=== PATIENT | male | born 1955 | race Caucasian/White ===

== ENCOUNTER 2016-09-22 02:09 | Emergency (ER) | payer OTHER ==
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
--- NOTE | ~2016-09-22 | CR150 ---
[facility] A Service of [facility] RADIOLOGY TEXT RESULTS PATIENT: BOYD PEOPLES LOCATION: [facility] : 53 UNIT #: [id number] AGE: [address]: Ehsan Roche MD SEX: M ORDER DR: [id number] [place] [id number] [facility] [place], [place] [address] [id number] E MR#: [id number] Acc #: [id number] NAME: BOYD PEOPLES : 1955 SEX: M STUDY DATE/TIME: 09/22/2016 2:23 UNIT: [facility] ROOM: STUDY DESCRIPTION: CR Hip Min 2 Views Lt Attending Physician: Ehsan Roche Ordering Physician: Ehsan Roche, [id number] Primary Care Physician: Primary Care Physician No MEDICAL IMAGING REPORT This report is preliminary unless electronic signature is present EXAM AP pelvis frog view left hip. DATE: 09/22/2016 HISTORY Left hip pain after falling tonight. Intoxicated. COMPARISON AP pelvis and right hip radiograph 04/30/2015 FINDINGS No acute pelvic fracture, no hip fracture or dislocation is seen. The joint spaces appear preserved. Degenerative loss of disc height is present on the right at L4-5 with osteophyte formation. IMPRESSION Normal pelvis and left hip. Degenerative changes of the lower lumbar spine. Dictated by... Mamta Cormier M.D. THIS IS AN ELECTRONICALLY VERIFIED REPORT Mamta Cormier M.D. at 09/22/2016 10:01 PM [facility]/sonia TD: 09/22/2016 07:59 JOB #: [id number] MEDICAL IMAGING REPORT [facility] A Service [facility] RADIOLOGY TEXT RESULTS PATIENT: BOYD PEOPLES LOCATION: [facility] : 53 UNIT #: [id number] AGE: [address]: Ehsan Roche MD SEX: M ORDER DR: COPY
[~2016-09-22 02:09] MED LIST: ALBUTEROL17 GM INH; ASPIRIN PO; ASPIRIN325 M1 PO; ASPIRIN81 M2 PO; ASPIRIN81 MG PO; AZITHROMYCIN250 MG PO; BACTRIM DS TABL1 TA2 PO; BACTROBAN15 GM TOP; BENZONATATE PO; BP MED; COREG3.125 MG PO; DICLOFENAC PO; DOXYCYCLINE HY100 M3 PO; FOLIC ACID1 MG PO; HEART MEDICINE; HYDROCODON-ACE1 EAC5 PO; HYDROCORTISONE15 G3 TP; HYDROCORTISONE30 G1 EXT; KCL 10MEQ/10 MEQ/100 PO; KEFLEX500 MG PO; KETOPROFEN PO; LOPRESSOR PO; MAG-OX 400400 M1 PO; MEDROL PO; MEDROL4 MG/DOSE- PO; MEGA MULTIVITA1 EACH PO; MOTRIN600 MG PO; MULTI VITAMIN1 EACH PO; NAPROSYN500 MG PO; NO MEDICATIONS; OMEPRAZOLE20 M1 PO; PEPCID AC20 M2 PO; PREDNISONE PO; PRESERVISION A1 EAC1 PO; PROTONIX PO; THIAMINE HCL100 M1 PO; TRAMADOL HCL50 M1 PO; VICODIN 5/1 TAB 5/50 PO; VOLTAREN50 MG PO; VOLTAREN75 MG PO; ZESTRIL10 MG PO; ZESTRIL5 MG PO; ZITHROMAX PO; ZYRTEC10 M2 PO; [UNRECOGNIZED DRUG - REMARK]
== END 2016-09-22 06:52 | disposition home or self-care (01) ==
LOC: CED 02:09
DX: S70.02XA Contusion of left hip, initial encounter (principal); I25.2 Old myocardial infarction; J45.909 Unspecified asthma, uncomplicated; F17.210 Nicotine dependence, cigarettes, uncomplicated; W01.0XXA Fall on same level from slipping, tripping and stumbling without subsequent striking against object, initial encounter; Y92.009 Unspecified place in unspecified non-institutional (private) residence as the place of occurrence of the external cause
CPT/HCPCS: 70450; 73502; 99284

== ENCOUNTER 2016-09-23 21:12 | Emergency (ER) | payer OTHER ==
--- NOTE | ~2016-09-23 | CR141 ---
[facility] A Service of [facility] RADIOLOGY TEXT RESULTS PATIENT: BOYD PEOPLES LOCATION: [facility] : 53 UNIT #: [id number] AGE: [address]: Ehsan Willard MD SEX: M ORDER DR: [id number] [facility] [address] [place], [place] [address] [id number] E MR#: [id number] Acc #: [id number] NAME: BOYD PEOPLES : 1955 SEX: M STUDY DATE/TIME: 09/23/2016 21:41 UNIT: [facility] ROOM: STUDY DESCRIPTION: CR Hand Min 3 Views Lt Attending Physician: Ehsan Willard M.D. Ordering Physician: Marcelo Vasquez D.O. Primary Care Physician: Primary Care Physician No MEDICAL IMAGING REPORT This report is preliminary unless electronic signature is present EXAM Left hand 3 views HISTORY Fell, intoxicated left hand and forearm pain, injury today. FINDINGS 3 views of the left hand demonstrates no acute fracture or dislocation. Joint space is maintained. Soft tissues unremarkable. IMPRESSION Negative left hand Dictated by... Jus Lopez M.D. THIS IS AN ELECTRONICALLY VERIFIED REPORT Jus Lopez M.D. at 09/24/2016 2:09 PM Bhargav TD: 09/24/2016 11:16 JOB #: [id number] MEDICAL IMAGING REPORT COPY
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
--- NOTE | ~2016-09-23 | CR132 ---
[facility] A Service of [facility] RADIOLOGY TEXT RESULTS PATIENT: BOYD PEOPLES LOCATION: [facility] : 53 UNIT #: [id number] AGE: [address]: Ehsan Willard MD SEX: M ORDER DR: [id number] [facility] [address] [place], [place] [address] [id number] E MR#: [id number] Acc #: [id number] NAME: BOYD PEOPLES : 1955 SEX: M STUDY DATE/TIME: 09/23/2016 21:43 UNIT: [facility] ROOM: STUDY DESCRIPTION: CR Forearm 2 View Lt Attending Physician: Ehsan Willard M.D. Ordering Physician: Marcelo Vasquez D.O. Primary Care Physician: Primary Care Physician No MEDICAL IMAGING REPORT This report is preliminary unless electronic signature is present EXAM Left forearm HISTORY Fell, intoxicated. Hand and forearm pain. FINDINGS 2 views of the left forearm demonstrates no acute fracture or dislocation. Arthritic changes noted about the left elbow with several ossific fragments both medial and lateral aspect of the elbow may be related to prior trauma or represent potential loose bodies. Distal radius and wrist joint unremarkable. Soft tissues unremarkable. IMPRESSION 1. No acute fracture or deformity of the forearm. 2. Arthritic changes of the elbow joint with multiple ossific fragments noted about the elbow joint most likely represents the sequelae of old trauma and several of these potentially could represent loose bodies, intraarticular. Dictated by... Jus Lopez M.D. THIS IS AN ELECTRONICALLY VERIFIED REPORT Jus Lopez M.D. at 09/24/2016 2:09 PM Deangelo TD: 09/24/2016 11:07 JOB #: [id number] MEDICAL IMAGING REPORT COPY
--- NOTE | ~2016-09-23 | CR72 ---
[facility] A Service of [facility] RADIOLOGY TEXT RESULTS PATIENT: BOYD PEOPLES LOCATION: [facility] : 53 UNIT #: [id number] AGE: [address]: Ehsan Willard MD SEX: M ORDER DR: [id number] [facility] [address] [facility] [place], [place] [address] [id number] E MR#: [id number] Acc #: [id number] NAME: BOYD PEOPLES : 1955 SEX: M STUDY DATE/TIME: 09/24/2016 5:35 UNIT: [facility] ROOM: STUDY DESCRIPTION: CR Chest Single View Portable Attending Physician: Ehsan Willard M.D. Ordering Physician: Marcelo Vasquez D.O. Primary Care Physician: No Primary Care Physician MEDICAL IMAGING REPORT This report is preliminary unless electronic signature is present EXAM AP portable chest DATE 09/24/2016 at 0535 HISTORY Hypoxia, shortness breath, intoxicated today. Hypertension. COMPARISON AP portable chest 08/30/2016. FINDINGS Stable mild cardiac enlargement. Clear lungs. No pleural effusion or pneumothorax or acute osseous abnormalities. IMPRESSION Stable mild cardiomegaly. No acute chest findings. Dictated by... Mamta Cormier M.D. THIS IS AN ELECTRONICALLY VERIFIED REPORT Mamta Cormier M.D. at 09/24/2016 10:26 PM [facility]/sushma TD: 09/24/2016 13:01 JOB #: [id number] MEDICAL IMAGING REPORT COPY
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
== END 2016-09-24 09:50 | disposition home or self-care (01) ==
LOC: CED 21:12
DX: S50.12XA Contusion of left forearm, initial encounter (principal); S60.222A Contusion of left hand, initial encounter; Z88.0 Allergy status to penicillin; Z88.8 Allergy status to other drugs, medicaments and biological substances; Z79.82 Long term (current) use of aspirin; X58.XXXA Exposure to other specified factors, initial encounter; Y92.89 Other specified places as the place of occurrence of the external cause
CPT/HCPCS: 36415; 70450; 71010; 72125; 73090; 73130; 84484; 94640; 96361; 96374; 96375; 96376; 99284; G0480; J2405; J2930

== ENCOUNTER 2016-09-30 02:55 | Emergency (ER) | payer OTHER ==
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
[2016-09-30 03:29] LABS: BASOPHIL% 0.5 % (0-2.5); DIFF IND NO; EOSINOPHIL% 0.6 % (0.0-7.0); HEMATOCRIT 36.3 % (38.0-50.0); HEMOGLOBIN 11.8 gm/dL (13.0-16.0); LYMPHOCYTE# 0.6 X10e3 (1.0-3.5); LYMPHOCYTE% 15.1 % (17.0-45.0); MEAN CELL VOLUME 89.1 FL (83-96); MEAN CORPUSCULAR HEMOGLOBIN 28.8 PG (28-34); MEAN CORPUSCULAR HGB CONC 32.3 g/dL (30-36); MEAN PLATELET VOLUME 7.7 FL (6.5-11.5); MONOCYTE# 0.4 X10e3 (0-1.0); MONOCYTE% 9.4 % (3.0-12.0); NEUTROPHIL# 3.1 X10e3 (1.5-7.1); NEUTROPHIL% 74.4 % (40-75); PLATELET COUNT 150 X10e3 (140-420); RED BLOOD COUNT 4.08 X10e (3.90-5.60); RED CELL DISTRIBUTION WIDTH 20.7 % (11.0-15.5); WHITE BLOOD COUNT 4.2 X10e3 (4.0-10.5)
[2016-09-30 03:55] LABS: ALBUMIN SERUM 3.9 g/dL (3.5-5.0); ALKALINE PHOSPHATASE 86 U/L (32-92); ALT (SGPT) 87 U/L (10-40); AST (SGOT) 102 U/L (10-42); BILIRUBIN, DIRECT 0.3 mg/dL (0.0-0.2); BILIRUBIN,INDIRECT 0.8 mg/dL (0.0-0.9); BILIRUBIN,TOTAL 1.1 mg/dL (0.2-2.0); BLOOD UREA NITROGEN 12 mg/dL (9-23); BUN/CREATININE RATIO 13.33; CALCIUM SERUM 8.1 mg/dL (8.4-10.2); CARBON DIOXIDE 21 mmol/L (22-31); CHLORIDE 107 mmol/L (100-111); CREATININE SERUM 0.9 mg/dL (0.6-1.4); GLOM FILT RATE Estimated ABOVE60 mL/min (>60); GLUCOSE FASTING 99 mg/dL (70-110); POTASSIUM 3.5 mmol/L (3.5-5.1); PROTEIN TOTAL SERUM 7.6 g/dL (6.0-8.3); SODIUM 144 mmol/L (135-145)
== END 2016-09-30 11:39 | disposition home or self-care (01) ==
LOC: CED 02:55
PROVIDERS: Emergency Medicine
DX: S00.03XA Contusion of scalp, initial encounter (principal); S00.83XA Contusion of other part of head, initial encounter; F10.129 Alcohol abuse with intoxication, unspecified; J45.909 Unspecified asthma, uncomplicated; F17.200 Nicotine dependence, unspecified, uncomplicated; Z88.0 Allergy status to penicillin; Z79.82 Long term (current) use of aspirin; Y04.8XXA Assault by other bodily force, initial encounter; Y92.481 Parking lot as the place of occurrence of the external cause
CPT/HCPCS: 36415; 70450; 70486; 72125; 80048; 80076; 85025; 99284; G0480

== ENCOUNTER 2016-10-01 07:30 | Emergency (ER) | payer OTHER | END 2016-10-01 09:10 | disposition home or self-care (01) | LOC: CED 07:30 | DX: S16.1XXA Strain of muscle, fascia and tendon at neck level, initial encounter (principal); S13.4XXA Sprain of ligaments of cervical spine, initial encounter; I10 Essential (primary) hypertension; J45.909 Unspecified asthma, uncomplicated; I21.3 ST elevation (STEMI) myocardial infarction of unspecified site; Z88.0 Allergy status to penicillin; Y09 Assault by unspecified means | CPT/HCPCS: 99283 ==

== ENCOUNTER 2016-10-04 07:20 | Emergency (ER) | payer OTHER ==
--- NOTE | ~2016-10-04 | EKG ---
PATIENT: BOYD PEOPLES UNIT #: [id number] Ventricular Rate: 65 BPM Atrial Rate: 65 BPM P-R Interval: 158 ms QRS Duration: 146 ms Q-T Interval: 422 ms QTC Calculation(Bezet): 438 ms P [place]: 53 degrees Calculated R [place]: 71 degrees Calculated T [place]: 35 degrees Diagnosis Line: Normal sinus rhythm Diagnosis Line: Right bundle branch block with repolarization Diagnosis Line: abnormality Diagnosis Line: Abnormal ECG Diagnosis Line: When compared with ECG of 30-AUG-2016 16:11, Diagnosis Line: No significant change was found Diagnosis Line: Confirmed by KAY OQUENDO MD ([id number]) on 10/06/2016 Diagnosis Line: 10:52:19 PM INTERPRETING MD: JERE GARCIA
--- NOTE | ~2016-10-04 | CR72 ---
[facility] A Service of [facility] RADIOLOGY TEXT RESULTS PATIENT: BOYD PEOPLES LOCATION: [place] : 53 UNIT #: [id number] AGE: [address]: Ehsan Roche MD SEX: M ORDER DR: [id number] [facility] [address] [place], [place] [address] [id number] E MR#: [id number] Acc #: [id number] NAME: BOYD PEOPLES : 1955 SEX: M STUDY DATE/TIME: 10/04/2016 6:40 UNIT: [facility] ROOM: STUDY DESCRIPTION: CR Chest Single View Portable Attending Physician: Akil Roche M.D. Ordering Physician: Stefany Espinal M.D. Primary Care Physician: No Primary Care Physician MEDICAL IMAGING REPORT This report is preliminary unless electronic signature is present EXAM Portable AP view of the chest. DATE OF EXAM 10/04/2016 COMPARISON September 24, 2016, August 30, 2016, and January 09, 2016. INDICATIONS 61-year-old male with dyspnea and chest pain since last night. Alcohol abuse. FINDINGS Lung volumes are diminished from comparison study. Mediastinal width and heart size are likely within normal limits for portable technique and low lung volumes but mild cardiomegaly and vascular congestion cannot be excluded. No evidence of pneumothorax, pleural effusion or acute airspace disease. IMPRESSION Allowing for low lung volumes and portable technique, the heart size is likely within normal limits, but there may be mild cardiomegaly. Findings in the lungs could reflect bronchovascular crowding and/or mild pulmonary vascular congestion. No pleural effusion or acute airspace disease. Dictated by... Umair Hong M.D. THIS IS AN ELECTRONICALLY VERIFIED REPORT Umair Hong M.D. at 10/07/2016 12:37 AM [facility] A Service of [facility] RADIOLOGY TEXT RESULTS PATIENT: BOYD PEOPLES LOCATION: [facility] : 53 UNIT #: [id number] AGE: [address]: Ehsan Roche MD SEX: M ORDER DR: IZABELLA/tika TD: 10/04/2016 16:55 JOB #: [id number] MEDICAL IMAGING REPORT Page 1 of 1 COPY
[2016-10-04 06:27] LABS: POC - CKMB 11.1 ng/mL (0.0-7.9); POC - TROPONIN <0.05 ng/mL (<=0.05)
[2016-10-04 06:30] LABS: BASOPHIL% 0.6 % (0-2.5); EOSINOPHIL# 0.1 X10e3 (0-0.7); EOSINOPHIL% 1.3 % (0.0-7.0); HEMATOCRIT 35.5 % (38.0-50.0); HEMOGLOBIN 11.4 gm/dL (13.0-16.0); LYMPHOCYTE# 1.8 X10e3 (1.0-3.5); LYMPHOCYTE% 36.6 % (17.0-45.0); MEAN CELL VOLUME 90.7 FL (83-96); MEAN CORPUSCULAR HEMOGLOBIN 29.1 PG (28-34); MEAN CORPUSCULAR HGB CONC 32.1 g/dL (30-36); MONOCYTE# 0.5 X10e3 (0-1.0); MONOCYTE% 10.6 % (3.0-12.0); NEUTROPHIL# 2.4 X10e3 (1.5-7.1); NEUTROPHIL% 50.9 % (40-75); PLATELET COUNT 132 X10e3 (140-420); RED BLOOD COUNT 3.92 X10e (3.90-5.60); RED CELL DISTRIBUTION WIDTH 20.5 % (11.0-15.5); WHITE BLOOD COUNT 4.8 X10e3 (4.0-10.5)
[2016-10-04 06:31] LABS: DIFF IND NO
[2016-10-04 06:44] LABS: INR 1.1; PARTIAL THROMBOPLASTIN TIME 25.2 SECONDS (23.5-31.3); PROTHROMBIN TIME (PATIENT) 11.2 SECONDS (9.6-11.5)
[2016-10-04 07:02] LABS: BILIRUBIN, DIRECT 0.3 mg/dL (0.0-0.2); BILIRUBIN,INDIRECT 0.7 mg/dL (0.0-0.9); BUN/CREATININE RATIO 11.42; CALCIUM SERUM 8.6 mg/dL (8.4-10.2); CREATININE SERUM 0.7 mg/dL (0.6-1.4); GLOM FILT RATE Estimated 100.5 mL/min (>60); POTASSIUM 3.1 mmol/L (3.5-5.1); PROTEIN TOTAL SERUM 7.7 g/dL (6.0-8.3)
[2016-10-04 08:10] LABS: POC - CKMB 10.1 ng/mL (0.0-7.9); POC - TROPONIN <0.05 ng/mL (<=0.05)
== END 2016-10-04 17:05 | disposition home or self-care (01) ==
LOC: CED 07:20
PROVIDERS: Student in an Organized Health Care Education/Training Program
DX: F10.129 Alcohol abuse with intoxication, unspecified (principal); J45.909 Unspecified asthma, uncomplicated; I25.10 Atherosclerotic heart disease of native coronary artery without angina pectoris; F17.200 Nicotine dependence, unspecified, uncomplicated; Z88.0 Allergy status to penicillin; Z88.8 Allergy status to other drugs, medicaments and biological substances; Z98.890 Other specified postprocedural states; Z88.6 Allergy status to analgesic agent; Z79.82 Long term (current) use of aspirin
CPT/HCPCS: 36415; 71010; 80048; 80076; 82553; 83880; 84484; 85025; 85610; 85730; 93005; 96361; 96365; 96366; 99284; G0480; J3411; J3475

== ENCOUNTER 2016-10-09 23:30 | Emergency (ER) | payer OTHER | END 2016-10-10 05:28 | disposition home or self-care (01) | LOC: CED 23:30 | DX: F10.10 Alcohol abuse, uncomplicated (principal); F17.200 Nicotine dependence, unspecified, uncomplicated; Z88.0 Allergy status to penicillin; Z88.8 Allergy status to other drugs, medicaments and biological substances | CPT/HCPCS: 99282 ==

== ENCOUNTER 2016-10-10 18:04 | Emergency (ER) | payer OTHER ==
--- NOTE | ~2016-10-10 | EKG ---
PATIENT: BOYD PEOPLES UNIT #: [id number] Ventricular Rate: 73 BPM Atrial Rate: 73 BPM P-R Interval: 182 ms QRS Duration: 150 ms Q-T Interval: 434 ms QTC Calculation(Bezet): 478 ms P [place]: 67 degrees Calculated R [place]: 79 degrees Calculated T [place]: 30 degrees Diagnosis Line: Sinus rhythm with Premature atrial complexes Diagnosis Line: Right bundle branch block with repolarization Diagnosis Line: abnormality Diagnosis Line: Abnormal ECG Diagnosis Line: When compared with ECG of 04-OCT-2016 06:00, Diagnosis Line: Premature atrial complexes are now Present Diagnosis Line: Confirmed by KAY OQUENDO MD ([id number]) on 10/12/2016 Diagnosis Line: 2:49:51 PM INTERPRETING MD: JERE GARCIA
[2016-10-10 16:59] LABS: BUN/CREATININE RATIO 17.5; CALCIUM SERUM 8.4 mg/dL (8.4-10.2); CREATININE SERUM 0.8 mg/dL (0.6-1.4); GLOM FILT RATE Estimated 95.1 mL/min (>60); POTASSIUM 3.3 mmol/L (3.5-5.1)
[2016-10-10 18:22] LABS: POC - CKMB 9.8 ng/mL (0.0-7.9); POC - TROPONIN <0.05 ng/mL (<=0.05)
== END 2016-10-10 22:10 | disposition home or self-care (01) ==
LOC: CED 18:04
PROVIDERS: Emergency Medicine
DX: F10.129 Alcohol abuse with intoxication, unspecified (principal); I25.10 Atherosclerotic heart disease of native coronary artery without angina pectoris; I10 Essential (primary) hypertension; Z88.0 Allergy status to penicillin; Z88.8 Allergy status to other drugs, medicaments and biological substances
CPT/HCPCS: 80048; 82553; 83690; 84484; 93005; 99284; G0480